=== PATIENT | female | born 1975 | race Caucasian/White ===

== ENCOUNTER 2019-06-24 20:42 | Emergency (ER) | payer BC ==
[2019-06-24 21:24] VITALS: BP 120/60; TEMP 98.4; O2SAT 98
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
[2019-06-24] MEDS: ACETAMINOPHEN W/COD #3 TAB (ER Disp) PO ONE (22:19)
== END 2019-06-24 22:24 | disposition home or self-care (01) ==
LOC: ER 20:42
DX: S09.90XA Unspecified injury of head, initial encounter (principal); M62.838 Other muscle spasm; M54.2 Cervicalgia; M25.512 Pain in left shoulder; Z87.891 Personal history of nicotine dependence; V49.49XA Driver injured in collision with other motor vehicles in traffic accident, initial encounter; Y92.410 Unspecified street and highway as the place of occurrence of the external cause